=== PATIENT | female | born 1950 | race Caucasian/White ===

== ENCOUNTER 2018-02-02 07:03 | Inpatient (IN) | payer MEDICARE, BC ==
[~2018-02-02] VITALS: Ht 167.6 cm; Wt 93.0 kg
[2018-02-02] VITALS (13 sets, daily range): BP systolic 122–144; BP diastolic 68–80
[2018-02-02 07:34] LABS: BASOPHILS % (AUTO) 0 % (0-1); EOSINOPHILS # (AUTO) 0.2 X10'3 (0-0.9); EOSINOPHILS % (AUTO) 3.6 % (0-6); HEMATOCRIT 42.6 % (35.0-45.0); HEMOGLOBIN 14.3 g/dl (12.0-16.0); LYMPHOCYTES # (AUTO) 0.4 X10'3 (1.1-4.8); LYMPHOCYTES % (AUTO) 6.9 % (21-51); MEAN CORPUSCULAR HEMOGLOBIN 29.3 PG (27.0-31.0); MEAN CORPUSCULAR HGB CONC 33.5 % (33.0-36.5); MEAN CORPUSCULAR VOLUME 87.3 FL (78-98); MEAN PLATELET VOLUME 7.7 FL (7.4-10.4); MONOCYTES # (AUTO) 0.3 X10'3 (0-0.9); MONOCYTES % (AUTO) 5.8 % (2-12); NEUTROPHILS # (AUTO) 4.4 X10'3 (1.8-7.7); NEUTROPHILS % (AUTO) 83.7 % (42-75); PLATELET COUNT 176 X10'3 (140-440); RED BLOOD COUNT 4.88 X10'6 (4.20-5.60); RED CELL DISTRIBUTION WIDTH 15.1 % (11.5-14.5); WHITE BLOOD COUNT 5.3 X10'3 (4.5-11.0)
[2018-02-02 07:37] LABS: CLARITY,URINE SLIGHTLY CLOUDY (Clear); COLOR,URINE YELLOW (Yellow); GLUCOSE, URINE NEGATIVE (Neg); KETONES,URINE TRACE mg/dl (Neg); LEUKOCYTE ESTERASE ,URINE SMALL (Neg); NITRITES, URINE POSITIVE (Neg); OCCULT BLOOD,URINE NEGATIVE (Neg); PROTEIN,URINE TRACE mg/dl (Neg)
[2018-02-02] MEDS ORDERED: normal saline 1000ML IV soln IVB ONE ×2 (07:40)
[2018-02-02 07:44] LABS: PARTIAL THROMBOPLASTIN TIME 26 SECONDS (22-32); PROTHROMBIN TIME 9.9 SECONDS (9.0-12.0)
[2018-02-02] MEDS ORDERED: acetaminophen 325mg tablet PO ONE (07:45)
[2018-02-02 07:51] LABS: UA COLLECTION TYPE CLN CATCH MIDSTREAM
[2018-02-02 07:58] LABS: BACTERIA,URINE 4+ /HPF (Neg); SQUAMOUS EPITHELIAL CELL,UR MODERATE /LPF (FEW); WBC,URINE 30-50 /HPF (0-4)
[2018-02-02 07:59] LABS: RBC,URINE 0-2 /HPF (0-2)
[2018-02-02 08:03] LABS: ALANINE AMINOTRANSFERASE 20 U/L (12-78); ALBUMIN 3.8 G/DL (3.4-5.0); ALKALINE PHOSPHATASE 62 IU/L (46-116); ANION GAP 10 (8-16); ASPARTATE AMINO TRANSFERASE 17 U/L (10-37); BILIRUBIN,TOTAL 0.7 MG/DL (0.1-1.0); BLOOD UREA NITROGEN 19 MG/DL (7-18); BUN/CREATININE RATIO 18.1 (6.6-38.0); CALCIUM 8.9 MG/DL (8.5-10.1); CHLORIDE 104 MMOL/L (99-107); CREATININE 1.05 MG/DL (0.40-0.90); GLUCOSE 117 MG/DL (70-104); POTASSIUM 4.2 MMOL/L (3.5-5.1); SODIUM 139 MMOL/L (135-145); TOTAL CARBON DIOXIDE 24.7 MMOL/L (24-32); TOTAL PROTEIN 7.5 G/DL (6.4-8.2); eGFR 52 ML/MIN
[2018-02-02] MEDS ORDERED: CefTRIAXone 2gm/D5W 50ml 50 ML IV ONE (08:10)
[2018-02-02] MEDS ORDERED: diphenhydrAMINE 50 mg/ml inj IV ONE (08:55)
[2018-02-02] MEDS ORDERED: magnesium Cl slow-release 64mg tablet PO PRN (09:10)
[2018-02-02] MEDS ORDERED: potassium Cl 40MEQ/NS 500ml 500 ML IV PRN ×2 (09:10)
[2018-02-02] MEDS ORDERED: potassium Cl 20 mEq SR tablet PO PRN ×2 (09:10)
[2018-02-02] MEDS ORDERED: mag hydrox/Alum hydrox/simeth 30ml oral suspension PO PRN (09:10)
[2018-02-02] MEDS ORDERED: magnesium hydroxide 30ml (MOM) UD suspension PO PRN (09:10)
[2018-02-02] MEDS ORDERED: ondansetron/PF 4mg/2ml inj IV PRN (09:10)
[2018-02-02] MEDS ORDERED: magnesium 1gm/100ml D5W IVPB 100 ML IV PRN (09:10)
[2018-02-02] MEDS ORDERED: acetaminophen 325mg tablet PO PRN (09:10)
[2018-02-02] MEDS ORDERED: magnesium 4gm in 100ml NS 100 ML IV PRN (09:10)
[2018-02-02] MEDS: aspirin 81mg tab.chew PO SCH (09:15)
[2018-02-02] MEDS ORDERED: CefTRIAXone/D5W-Rocephin 1gm 50 ML IV SCH (09:15)
[2018-02-02] MEDS ORDERED: ERGO500014 PO (09:43)
[2018-02-02] MEDS ORDERED: SIMV20TA5 PO (09:45)
[2018-02-02] MEDS ORDERED: LUTE1CAP5 (09:48)
[2018-02-02] MEDS ORDERED: ASPI-611 PO (09:49)
[2018-02-02] MEDS ORDERED: [UNRECOGNIZED DRUG - CODE] (09:50)
[2018-02-02] MEDS ORDERED: ACET-2319 PO (09:53)
[2018-02-02] MEDS ORDERED: CALC-627 (09:54)
[2018-02-02] MEDS ORDERED: metoprolol tartrate 1mg/ml inj IV PRN (10:00)
[2018-02-02] MEDS ORDERED: CAFFEINE CITRATE 60 MG/3 ML injection vial IV PRN (10:00)
[2018-02-02] MEDS ORDERED: regadenoson 0.4mg/5ml syringe IV ONE ×2 (10:00→13:29)
[2018-02-02] MEDS ORDERED: nitroGLYCERIN 0.4mg SUBLingual tab SL PRN (10:00)
[2018-02-02] MEDS ORDERED: DIPH25CA83 PO (10:03)
[2018-02-02] MEDS ORDERED: LEVO25TA2 PO (10:05)
[2018-02-02] MEDS: normal saline 1000ml 1,000 ML IV SCH (11:00)
[2018-02-02] MEDS ORDERED: CAFFEINE CITRATE 60 MG/3 ML injection vial IV ONE (13:29)
[2018-02-02] MEDS: metoprolol tartrate 12.5mg (1/2 tablet) PO SCH (19:45)
[2018-02-02] MEDS: heparin, porcine 5000 units/ml vial SQ SCH (19:46)
[2018-02-02] MEDS ORDERED: lactobacillus rhamnosus 10,000 MMU CELLS/CAPSULE PO SCH (20:00)
[2018-02-02] MEDS ORDERED: temazepam 15mg capsule PO PRN (20:00)
[2018-02-02] MEDS: levoFLOXACIN-Levaquin 500mg/D5 100 ML IV SCH (21:08)
[2018-02-03] MEDS: normal saline 1000ml 1,000 ML IV SCH (00:28)
[2018-02-03 03:00] VITALS: BP 109/66
[2018-02-03 04:52] LABS: BASOPHILS % (AUTO) 0.3 % (0-1); EOSINOPHILS # (AUTO) 0.1 X10'3 (0-0.9); EOSINOPHILS % (AUTO) 3.1 % (0-6); HEMOGLOBIN 11.8 g/dl (12.0-16.0); LYMPHOCYTES # (AUTO) 0.9 X10'3 (1.1-4.8); LYMPHOCYTES % (AUTO) 22.5 % (21-51); MEAN CORPUSCULAR HEMOGLOBIN 29.4 PG (27.0-31.0); MEAN CORPUSCULAR HGB CONC 33.6 % (33.0-36.5); MEAN CORPUSCULAR VOLUME 87.5 FL (78-98); MEAN PLATELET VOLUME 7.7 FL (7.4-10.4); MONOCYTES # (AUTO) 0.5 X10'3 (0-0.9); MONOCYTES % (AUTO) 11.3 % (2-12); NEUTROPHILS # (AUTO) 2.6 X10'3 (1.8-7.7); NEUTROPHILS % (AUTO) 62.8 % (42-75); PLATELET COUNT 145 X10'3 (140-440); RED CELL DISTRIBUTION WIDTH 15.2 % (11.5-14.5); WHITE BLOOD COUNT 4.1 X10'3 (4.5-11.0)
[2018-02-03 05:09] LABS: ALANINE AMINOTRANSFERASE 16 U/L (12-78); ALBUMIN 2.7 G/DL (3.4-5.0); ALBUMIN/GLOBULIN RATIO 0.9 (1.1-1.5); ALKALINE PHOSPHATASE 45 IU/L (46-116); ANION GAP 8 (8-16); ASPARTATE AMINO TRANSFERASE 13 U/L (10-37); BILIRUBIN,TOTAL 0.4 MG/DL (0.1-1.0); BLOOD UREA NITROGEN 14 MG/DL (7-18); BUN/CREATININE RATIO 16.1 (6.6-38.0); CALCIUM 7.9 MG/DL (8.5-10.1); CHLORIDE 108 MMOL/L (99-107); CHOL/HDL RATIO 3.3 (0.00-4.99); CHOLESTEROL 140 MG/DL (0-200); CREATININE 0.87 MG/DL (0.40-0.90); GLUCOSE 104 MG/DL (70-104); HDL CHOLESTEROL 43 MG/DL (35-60); LDL CHOLESTEROL 78 MG/DL (50-100); MAGNESIUM 1.6 MG/DL (1.5-2.4); POTASSIUM 3.7 MMOL/L (3.5-5.1); SODIUM 140 MMOL/L (135-145); TOTAL CARBON DIOXIDE 24.1 MMOL/L (24-32); TOTAL PROTEIN 5.8 G/DL (6.4-8.2); TRIGLYCERIDES 130 MG/DL (20-135); eGFR 65 ML/MIN
[2018-02-03 06:00] VITALS: BP 99/60
[2018-02-03] MEDS ORDERED: K and/or MAG REPLACEMENT MC SCH (08:00)
[2018-02-03 09:19] VITALS: BP 110/68
[2018-02-03] MEDS: metoprolol tartrate 12.5mg (1/2 tablet) PO SCH (09:20)
[2018-02-03] MEDS: aspirin 81mg tab.chew PO SCH (09:21)
[2018-02-03] MEDS: heparin, porcine 5000 units/ml vial SQ SCH (09:22)
[2018-02-03] MEDS: levoFLOXACIN-Levaquin 500mg/D5 100 ML IV SCH (09:22)
[2018-02-03 11:00] VITALS: BP 105/65
[2018-02-03] MEDS ORDERED: LEVO500T2 PO (12:52)
[2018-02-04] MEDS ORDERED: levoFLOXACIN 500mg tablet PO SCH (11:00)
== END 2018-02-03 14:25 | disposition home or self-care (01) | DRG 872 ==
LOC: ER 07:03 → ED HOLD 09:09 → PCU 3S 10:40
PROVIDERS: ADMIT Internal Medicine; ATTEND Internal Medicine
PROC: 4A02XM4 Measurement of Cardiac Total Activity, External Approach (ICD-10-PCS; principal; 2018-02-02)
PROC: 3E033HZ Introduction of Radioactive Substance into Peripheral Vein, Percutaneous Approach (ICD-10-PCS; 2018-02-02)
DX: A41.9 Sepsis, unspecified organism (principal); N39.0 Urinary tract infection, site not specified; E03.9 Hypothyroidism, unspecified; E78.00 Pure hypercholesterolemia, unspecified; R00.0 Tachycardia, unspecified; I08.1 Rheumatic disorders of both mitral and tricuspid valves; R07.9 Chest pain, unspecified; F41.9 Anxiety disorder, unspecified; I10 Essential (primary) hypertension; Z88.1 Allergy status to other antibiotic agents; Z88.6 Allergy status to analgesic agent; Z79.82 Long term (current) use of aspirin; Z79.890 Hormone replacement therapy; Z79.899 Other long term (current) drug therapy; Z82.49 Family history of ischemic heart disease and other diseases of the circulatory system
CPT/HCPCS: 36415; 71045; 78452; 80053; 80061; 81001; 83605; 83735; 84484; 85025; 85610; 85730; 87040; 87070; 87077; 87088; 87186; 93005; 93017; 93306; 96365; 96375; 99285; A9500; J0696; J1200; J1644; J1956; J2405; J7030

== ENCOUNTER 2019-04-10 05:26 | Inpatient (IN) | payer MEDICARE, BC ==
[2019-03-29 12:05] LABS: BASOPHILS % (AUTO) 0.4 % (0-1); EOSINOPHILS # (AUTO) 0.3 X10'3 (0-0.9); EOSINOPHILS % (AUTO) 3.4 % (0-6); LYMPHOCYTES # (AUTO) 1.1 X10'3 (1.1-4.8); LYMPHOCYTES % (AUTO) 14.9 % (21-51); MEAN CORPUSCULAR HEMOGLOBIN 29.8 PG (27.0-31.0); MEAN CORPUSCULAR HGB CONC 33.5 g/dL (33.0-36.5); MEAN PLATELET VOLUME 7.3 FL (7.4-10.4); MONOCYTES # (AUTO) 0.8 X10'3 (0-0.9); MONOCYTES % (AUTO) 10.2 % (2-12); NEUTROPHILS # (AUTO) 5.4 X10'3 (1.8-7.7); NEUTROPHILS % (AUTO) 71.1 % (42-75); PRE OP HEMATOCRIT 41.2 % (35.0-45.0); PRE OP HEMOGLOBIN 13.8 g/dL (12.0-16.0); PRE OP PLATELET COUNT 219 X10'3 (140-440); RED BLOOD COUNT 4.63 X10'6 (4.20-5.60); RED CELL DISTRIBUTION WIDTH 14.8 % (11.5-14.5)
[2019-03-29 12:10] LABS: PRE OP INR 0.9 INR
[2019-03-29 12:12] LABS: ALBUMIN 3.8 G/DL (3.4-5.0); ALKALINE PHOSPHATASE 64 IU/L (46-116); BLOOD UREA NITROGEN 22 MG/DL (7-18); BUN/CREATININE RATIO 28.2 (6.6-38.0); CALCIUM 8.9 MG/DL (8.5-10.1); CHLORIDE 108 MMOL/L (99-107); CREATININE 0.78 MG/DL (0.40-0.90); PRE OP ALT 23 U/L (30-65); PRE OP ANION GAP 6 (8-16); PRE OP AST 14 U/L (10-37); PRE OP BILIRUB, TOTAL 0.7 MG/DL (0.0-1.0); PRE OP GLUCOSE 96 MG/DL (70-104); PRE OP POTASSIUM 4.2 MMOL/L (3.4-5.1); PRE OP SODIUM 142 MMOL/L (135-145); TOTAL CARBON DIOXIDE 27.7 MMOL/L (24-32); TOTAL PROTEIN 7.5 G/DL (6.4-8.2); eGFR 73 ML/MIN
[2019-04-10] VITALS (16 sets, daily range): BP systolic 93–167; BP diastolic 35–94
[~2019-04-10] VITALS: Ht 167.6 cm; Wt 98.9 kg
[~2019-04-10 05:26] MED LIST: ACET-2119 PO; ACET-2319 PO; ASPI-611 PO; BETA1TAB18 PO; BIOT300T7 PO; CALC-627 PO; CRANBERRY PO; DIPH25TA45 PO; ERGO500014 PO; IBPROFEN PO; IRBE150T27 PO; JOINT JUICE PO; LEG CRAMP PM; LEVO25TA2 PO; MELA3TAB64 PO; SIMV-42 PO; THERAWORX TOP; [UNRECOGNIZED DRUG - CODE] PO; [UNRECOGNIZED DRUG - OTHER] PO; ringers solution, lacted 1,000 ML IV SCH
[2019-04-10] MEDS ORDERED: tranexamic acid inj. 1,000 MG in normal saline 100 ML IV ONE (05:30)
[2019-04-10] MEDS ORDERED: clindamycin-Cleocin 900mg/D5W 50 ML IV ONE (05:30)
[2019-04-10] MEDS ORDERED: vancomycin inj 1,500 MG in normal saline 300ml IV soln IV ONE (05:30)
[2019-04-10] MEDS ORDERED: famotidine 20mg tablet PO ONE (05:30)
[2019-04-10] MEDS ORDERED: LIDOcaine 1% (10mg/ml) 2ml vial ONE (06:09)
[2019-04-10] MEDS ORDERED: ceFAZolin 1000mg inj ONE (06:38)
[2019-04-10] MEDS ORDERED: fentaNYL/PF 50MCG/1 ML 2ML syringe ONE (07:23)
[2019-04-10] MEDS ORDERED: MIDAZolam 1mg/ml 10ml vial ONE (07:23)
[2019-04-10] MEDS ORDERED: ringers solution, lacted 1,000 ML IV SCH (08:32)
[2019-04-10] MEDS ORDERED: meperidine/PF 25mg/ml syringe IV PRN ×3 (08:35)
[2019-04-10] MEDS ORDERED: ondansetron/PF 4mg/2ml inj IV PRN ×2 (08:35→09:55)
[2019-04-10] MEDS ORDERED: morphine 4 MG/ML inj SYRINge IV PRN ×2 (08:35)
[2019-04-10] MEDS ORDERED: proCHLORperazine 10 MG/2 ml inj IV PRN (08:35)
[2019-04-10] MEDS: potassium Cl 20mEq in NS 1,000 ML IV SCH ×2 (09:52→23:12)
[2019-04-10] MEDS ORDERED: bisacodyl 10mg suppository rectal RC PRN (09:55)
[2019-04-10] MEDS ORDERED: diphenhydrAMINE 25mg capsule PO PRN ×2 (09:55)
[2019-04-10] MEDS ORDERED: acetaminophen 325mg tablet PO PRN (09:55)
[2019-04-10] MEDS ORDERED: HYDROmorphone inj. 0.5 MG/0.5 ML DISP.SYRIN IV PRN (09:55)
[2019-04-10] MEDS ORDERED: magnesium hydroxide 30ml (MOM) UD suspension PO PRN (09:55)
[2019-04-10] MEDS ORDERED: dexamethasone sod phosphate 4mg/ml inj. ONE (10:00)
[2019-04-10] MEDS ORDERED: ROPIVAcaine 0.5% (5mg/ml) 30ml vial ONE (10:00)
--- NOTE | 2019-04-10 10:05 | NUR ---
Received from OR via , accompanied by Anesthesiologist TRIP and report given by Anesthesiolgist. AWAKE IN NO RESP DISTRESS SKIN WARM AND DRY HOB ELEVATED, RLE ELEVATED WITH PILLOW, HEEL NOT ON BED. FEET WARM GOOD CAP REFILL AND PEDAL PULSES. NO CO PAIN, BOBBY, SENSATION L1. [place] SECURED, WITH CLEAR YELLOW URINE. ICE TO RT KNEE. SCDS ON.
[2019-04-10] MEDS: ROPIVAcaine 0.2%/PF PAIN PUMP 550 ML IJ SCH (10:41)
--- NOTE | 2019-04-10 10:55 | NUR ---
Report called to receiving nurse. Transferred via BED Belongings . Special Issues communicated to receiving nurse.AWAKE NO CO PAIN, DSG DI, GELACIO DSG, PAIN PUMP CONNECTED, AT 4, ICE TO RT KNEE FEET WITH PEDAL PULSES. URINE QS CLEAER YELLOW, SCDS CONT. TO ROOM, FAMILY AT BS.
[2019-04-10] MEDS ORDERED: HYDROcodone/acetaminophen 5mg/325mg tablet PO PRN (12:05)
[2019-04-10] MEDS ORDERED: HYDROmorphone 1 mg/ml syringe ONE (12:20)
[2019-04-10] MEDS: clindamycin 600mg/D5W 50ml 50 ML IV SCH ×2 (13:58→19:35)
[2019-04-10] MEDS: HYDROcodone/acetaminophen 10/325mg tab PO PRN ×3 (13:59→22:35)
[2019-04-10] MEDS: ketorolac tromethamine 15mg/ml inj. IV SCH ×2 (13:59→19:36)
[2019-04-10] MEDS ORDERED: vancomycin/NS 1 GM ADD-VANTAGE 250 ML IV SCH (20:00)
[2019-04-10] MEDS: sennosides 8.6mg tablet PO SCH (20:43)
[2019-04-11] MEDS: ketorolac tromethamine 15mg/ml inj. IV SCH ×2 (01:44→08:14)
[2019-04-11 02:00] VITALS: BP 109/69
[2019-04-11] MEDS: HYDROcodone/acetaminophen 10/325mg tab PO PRN ×3 (05:23→19:55)
[2019-04-11 05:34] LABS: BASOPHILS % (AUTO) 0.2 % (0-1); EOSINOPHILS % (AUTO) 0.1 % (0-6); HEMATOCRIT 31.8 % (35.0-45.0); HEMOGLOBIN 10.8 g/dl (12.0-16.0); LYMPHOCYTES # (AUTO) 0.7 X10'3 (1.1-4.8); LYMPHOCYTES % (AUTO) 8.9 % (21-51); MEAN CORPUSCULAR HEMOGLOBIN 30.7 PG (27.0-31.0); MEAN CORPUSCULAR VOLUME 90.3 FL (78-98); MEAN PLATELET VOLUME 7.6 FL (7.4-10.4); MONOCYTES # (AUTO) 0.9 X10'3 (0-0.9); MONOCYTES % (AUTO) 10.4 % (2-12); NEUTROPHILS # (AUTO) 6.6 X10'3 (1.8-7.7); NEUTROPHILS % (AUTO) 80.4 % (42-75); PLATELET COUNT 170 X10'3 (140-440); RED BLOOD COUNT 3.52 X10'6 (4.20-5.60); RED CELL DISTRIBUTION WIDTH 14.3 % (11.5-14.5); WHITE BLOOD COUNT 8.3 X10'3 (4.5-11.0)
--- NOTE | 2019-04-11 06:25 | NUR ---
Patient in room ORTHO 4023B. I have received report from Yahaira and had the opportunity to ask questions and assume patient care.
--- NOTE | 2019-04-11 06:35 | NUR ---
Received report from Anne-Marie RN
[2019-04-11 06:39] LABS: ALANINE AMINOTRANSFERASE 15 U/L (12-78); ALBUMIN 2.8 G/DL (3.4-5.0); ALBUMIN/GLOBULIN RATIO 0.8 (1.1-1.5); ALKALINE PHOSPHATASE 48 IU/L (46-116); ANION GAP 6 (8-16); ASPARTATE AMINO TRANSFERASE 12 U/L (10-37); BILIRUBIN,TOTAL 0.6 MG/DL (0.1-1.0); BLOOD UREA NITROGEN 14 MG/DL (7-18); BUN/CREATININE RATIO 14.9 (6.6-38.0); CALCIUM 8.5 MG/DL (8.5-10.1); CHLORIDE 110 MMOL/L (99-107); CREATININE 0.94 MG/DL (0.40-0.90); GLUCOSE 119 MG/DL (70-104); POTASSIUM 5.4 MMOL/L (3.5-5.1); SODIUM 144 MMOL/L (135-145); TOTAL CARBON DIOXIDE 27.8 MMOL/L (24-32); TOTAL PROTEIN 6.1 G/DL (6.4-8.2); eGFR 59 ML/MIN
[2019-04-11 06:53] VITALS: BP 118/77
[2019-04-11] MEDS: levoTHYROXINE 25mcg tablet PO SCH (07:46)
[2019-04-11] MEDS: losartan 50mg tablet PO SCH (07:49)
--- NOTE | 2019-04-11 11:44 | NUR ---
Joint replacement consult: Pt s/p R TKA PO 75-100% first meal post-op meeting healing needs thus far. LBM 04/10 receiving routine senna. K 5.4 receiving KCl/NS. Will monitor for additional protein needs; no current nutrition concerns at this time. Addendum: 04/11/19 at [address] Amended: Links added.
--- NOTE | 2019-04-11 11:48 | NUR ---
Student Medication Administration:For this medication-pass time frame 9060-6972, all medications were reviewed,administered and documented per hospital policy by Lorne Salinas. Student documentation:I have reviewed and agree with all interventions, assessments performed and documented by Lorne Salinas.
--- NOTE | 2019-04-11 12:08 | NUR ---
Problems reprioritized. Patient report given, questions answered & plan of care reviewed with Yahaira.
[2019-04-11] MEDS: potassium Cl 20mEq in NS 1,000 ML IV SCH (12:32)
[2019-04-11 18:00] VITALS: BP 108/64
--- NOTE | 2019-04-11 18:19 | NUR ---
Patient in room ORTHO 4023. I have received report from SADIE OCHOA and had the opportunity to ask questions and assume patient care.
[2019-04-11] MEDS: sennosides 8.6mg tablet PO SCH (19:56)
[2019-04-11 22:00] VITALS: BP 154/77
[2019-04-12] MEDS: potassium Cl 20mEq in NS 1,000 ML IV SCH (01:52)
[2019-04-12] MEDS: HYDROcodone/acetaminophen 10/325mg tab PO PRN ×4 (05:19→20:42)
[2019-04-12 06:00] VITALS: BP 144/71
[2019-04-12 06:38] LABS: BASOPHILS # (AUTO) 0.1 X10'3 (0-0.2); BASOPHILS % (AUTO) 0.6 % (0-1); EOSINOPHILS # (AUTO) 0.3 X10'3 (0-0.9); EOSINOPHILS % (AUTO) 3.3 % (0-6); HEMATOCRIT 31.5 % (35.0-45.0); HEMOGLOBIN 10.7 g/dl (12.0-16.0); LYMPHOCYTES # (AUTO) 1.5 X10'3 (1.1-4.8); LYMPHOCYTES % (AUTO) 17.7 % (21-51); MEAN CORPUSCULAR HEMOGLOBIN 30.6 PG (27.0-31.0); MEAN CORPUSCULAR VOLUME 89.9 FL (78-98); MEAN PLATELET VOLUME 7.5 FL (7.4-10.4); NEUTROPHILS # (AUTO) 5.5 X10'3 (1.8-7.7); NEUTROPHILS % (AUTO) 66.4 % (42-75); PLATELET COUNT 165 X10'3 (140-440); RED CELL DISTRIBUTION WIDTH 14.4 % (11.5-14.5); WHITE BLOOD COUNT 8.2 X10'3 (4.5-11.0)
[2019-04-12 06:55] LABS: ALANINE AMINOTRANSFERASE 17 U/L (12-78); ALBUMIN 2.9 G/DL (3.4-5.0); ALBUMIN/GLOBULIN RATIO 0.8 (1.1-1.5); ALKALINE PHOSPHATASE 52 IU/L (46-116); ANION GAP 8 (8-16); ASPARTATE AMINO TRANSFERASE 14 U/L (10-37); BILIRUBIN,TOTAL 0.6 MG/DL (0.1-1.0); BLOOD UREA NITROGEN 16 MG/DL (7-18); BUN/CREATININE RATIO 20.5 (6.6-38.0); CALCIUM 8.7 MG/DL (8.5-10.1); CHLORIDE 106 MMOL/L (99-107); CREATININE 0.78 MG/DL (0.40-0.90); GLUCOSE 94 MG/DL (70-104); POTASSIUM 4.2 MMOL/L (3.5-5.1); SODIUM 141 MMOL/L (135-145); TOTAL CARBON DIOXIDE 27.1 MMOL/L (24-32); TOTAL PROTEIN 6.6 G/DL (6.4-8.2); eGFR 73 ML/MIN
--- NOTE | 2019-04-12 06:58 | NUR ---
Problems reprioritized. Patient report given, questions answered & plan of care reviewed with SADIE DELGADO.
[2019-04-12 07:00] VITALS: BP 104/69
[2019-04-12] MEDS ORDERED: MIDAZolam 5mg/5ml vial ONE (07:48)
[2019-04-12] MEDS: levoTHYROXINE 25mcg tablet PO SCH (07:57)
[2019-04-12] MEDS: losartan 50mg tablet PO SCH (08:00)
[2019-04-12] MEDS ORDERED: ASPI-1071 PO (09:12)
[2019-04-12] MEDS ORDERED: HYDR-4353 PO (09:12)
[2019-04-12] MEDS: ROPIVAcaine 0.2%/PF PAIN PUMP 550 ML IJ SCH (09:30)
[2019-04-12 10:00] VITALS: BP 131/64
--- NOTE | 2019-04-12 11:21 | NUR ---
Student documentation: I have reviewed all interventions, assessments performed and [facility] Student Medication Administration: For this medication-pass time frame, all medication were reviewed, dispensed, administered and documented per hospital policy [facility].
[2019-04-12] MEDS ORDERED: aspirin 81mg tablet.DR PO ONE (11:25)
[2019-04-12] MEDS ORDERED: ROPIVAcaine 0.2%/PF PAIN PUMP 550 ML ADDCANAL SCH (15:08)
[2019-04-12] MEDS: aspirin 81mg tablet.DR PO SCH (17:34)
--- NOTE | 2019-04-12 18:00 | NUR ---
Received report from Lisandra NOEL.
[2019-04-12 18:30] VITALS: BP 131/79
[2019-04-12] MEDS: sennosides 8.6mg tablet PO SCH (20:31)
[2019-04-12 22:00] VITALS: BP 123/64
[2019-04-13] MEDS: HYDROcodone/acetaminophen 10/325mg tab PO PRN ×4 (05:35→17:51)
[2019-04-13 06:00] VITALS: BP 139/76
--- NOTE | 2019-04-13 06:29 | NUR ---
Problems reprioritized. Patient report given, questions answered & plan of care reviewed with Lisandra Esquivel RN.
[2019-04-13 07:19] LABS: BASOPHILS # (AUTO) 0.1 X10'3 (0-0.2); BASOPHILS % (AUTO) 0.7 % (0-1); EOSINOPHILS # (AUTO) 0.4 X10'3 (0-0.9); EOSINOPHILS % (AUTO) 5.3 % (0-6); HEMOGLOBIN 10.6 g/dl (12.0-16.0); LYMPHOCYTES # (AUTO) 1.2 X10'3 (1.1-4.8); LYMPHOCYTES % (AUTO) 15.6 % (21-51); MEAN CORPUSCULAR HEMOGLOBIN 30.6 PG (27.0-31.0); MEAN CORPUSCULAR HGB CONC 34.3 g/dL (33.0-36.5); MEAN CORPUSCULAR VOLUME 89.1 FL (78-98); MEAN PLATELET VOLUME 7.5 FL (7.4-10.4); MONOCYTES # (AUTO) 0.9 X10'3 (0-0.9); MONOCYTES % (AUTO) 10.9 % (2-12); NEUTROPHILS # (AUTO) 5.4 X10'3 (1.8-7.7); NEUTROPHILS % (AUTO) 67.5 % (42-75); PLATELET COUNT 186 X10'3 (140-440); RED BLOOD COUNT 3.48 X10'6 (4.20-5.60); RED CELL DISTRIBUTION WIDTH 14.7 % (11.5-14.5); WHITE BLOOD COUNT 7.9 X10'3 (4.5-11.0)
[2019-04-13 07:40] LABS: ALANINE AMINOTRANSFERASE 16 U/L (12-78); ALBUMIN 2.9 G/DL (3.4-5.0); ALBUMIN/GLOBULIN RATIO 0.7 (1.1-1.5); ALKALINE PHOSPHATASE 60 IU/L (46-116); ANION GAP 7 (8-16); ASPARTATE AMINO TRANSFERASE 14 U/L (10-37); BILIRUBIN,TOTAL 0.8 MG/DL (0.1-1.0); BLOOD UREA NITROGEN 13 MG/DL (7-18); BUN/CREATININE RATIO 15.5 (6.6-38.0); CALCIUM 8.8 MG/DL (8.5-10.1); CHLORIDE 104 MMOL/L (99-107); CREATININE 0.84 MG/DL (0.40-0.90); GLUCOSE 108 MG/DL (70-104); SODIUM 139 MMOL/L (135-145); TOTAL CARBON DIOXIDE 28.1 MMOL/L (24-32); TOTAL PROTEIN 6.9 G/DL (6.4-8.2); eGFR 67 ML/MIN
[2019-04-13] MEDS: losartan 50mg tablet PO SCH (08:00)
[2019-04-13] MEDS: aspirin 81mg tablet.DR PO SCH ×2 (08:20→17:50)
[2019-04-13] MEDS: levoTHYROXINE 25mcg tablet PO SCH (08:20)
[2019-04-13 10:04] VITALS: BP 151/78
--- NOTE | 2019-04-13 16:29 | NUR ---
Pt PO 50-75% avg meals so far this admit. Pt/SO seen by RD for written/verbal high protein ed w/ RD contact information provided. Pt in process of d/c during RD visit. Encouraged pt to contact RD if further nutrition questions/concerns. Addendum: 04/13/19 at [address] Amended: Links added.
== END 2019-04-13 18:30 | disposition home or self-care (01) | DRG 470 ==
LOC: PAS IN 05:26 → EDSTATUS 07:30 → ORTHO 4S 10:55
PROVIDERS: ADMIT Orthopaedic Surgery; ATTEND Orthopaedic Surgery
PROC: 3E0T3BZ Introduction of Anesthetic Agent into Peripheral Nerves and Plexi, Percutaneous Approach (ICD-10-PCS; 2019-04-10)
PROC: 0SRC069 Replacement of Right Knee Joint with Oxidized Zirconium on Polyethylene Synthetic Substitute, Cemented, Open Approach (ICD-10-PCS; principal; 2019-04-10 07:17)
DX: M17.11 Unilateral primary osteoarthritis, right knee (principal); D62 Acute posthemorrhagic anemia; I10 Essential (primary) hypertension; E66.9 Obesity, unspecified; E03.9 Hypothyroidism, unspecified; Z88.5 Allergy status to narcotic agent; Z91.013 Allergy to seafood; Z68.35 Body mass index [BMI] 35.0-35.9, adult
CPT/HCPCS: 36415; 80053; 82948; 84443; 85025; 85610; 85730; 86885; 86900; 86901; 86920; 87081; 97110; 97116; 97161; 97530; A4215; A4615; A6455; A7000; C1713; C1758; C1776; G0378; J0690; J1100; J1170; J1885; J2001; J2250; J2795; J3010; J3370; J3480; J3490; J7120; Q0163

== ENCOUNTER 2023-03-08 17:26 | Emergency (ER) | payer MEDICARE ==
[~2023-03-08] VITALS: Ht 165.1 cm; Wt 95.2 kg
[~2023-03-08 17:26] MED LIST changes: -ACET-2119 PO; -ACET-2319 PO; +ASPI-1071 PO; -ASPI-611 PO; -BETA1TAB18 PO; -BIOT300T7 PO; -CALC-627 PO; -CRANBERRY PO; -DIPH25TA45 PO; -ERGO500014 PO; +HYDR-4353 PO; -IBPROFEN PO; +IRBE150T24 PO; -IRBE150T27 PO; -JOINT JUICE PO; -LEG CRAMP PM; -MELA3TAB64 PO; -SIMV-42 PO; -THERAWORX TOP; -[UNRECOGNIZED DRUG - CODE] PO; -[UNRECOGNIZED DRUG - OTHER] PO; -ringers solution, lacted 1,000 ML IV SCH
[2023-03-08 17:32] VITALS: TEMP 99.3
[2023-03-08 18:14] LABS: BILIRUBIN,URINE NEGATIVE (Neg); CLARITY,URINE SLIGHTLY CLOUDY (Clear); COLOR,URINE YELLOW (Yellow); GLUCOSE, URINE NEGATIVE (Neg); KETONES,URINE NEGATIVE (Neg); LEUKOCYTE ESTERASE ,URINE SMALL (Neg); NITRITES, URINE NEGATIVE (Neg); OCCULT BLOOD,URINE TRACE-INTACT (Neg); PROTEIN,URINE NEGATIVE (Neg); UROBILINOGEN,URINE 0.2 E.U/dL (0.2-1.0)
[2023-03-08 18:17] LABS: HEMOGLOBIN 14.3 g/dl (12.0-16.0); MONOCYTES # (AUTO) 0.8 X10'3 (0-0.9)
[2023-03-08 18:19] LABS: BASOPHILS # (AUTO) 0.1 X10'3 (0-0.2); BASOPHILS % (AUTO) 0.7 % (0-1); EOSINOPHILS # (AUTO) 0.2 X10'3 (0-0.9); EOSINOPHILS % (AUTO) 1.9 % (0-6); HEMATOCRIT 42.8 % (35.0-45.0); LYMPHOCYTES # (AUTO) 1.4 X10'3 (1.1-4.8); LYMPHOCYTES % (AUTO) 16.3 % (21-51); MEAN CORPUSCULAR HEMOGLOBIN 29.9 PG (27.0-31.0); MEAN CORPUSCULAR HGB CONC 33.4 g/dL (33.0-36.5); MEAN CORPUSCULAR VOLUME 89.7 FL (78-98); MEAN PLATELET VOLUME 7.2 FL (7.4-10.4); NEUTROPHILS # (AUTO) 6.2 X10'3 (1.8-7.7); NEUTROPHILS % (AUTO) 72.1 % (42-75); PLATELET COUNT 228 X10'3 (140-440); RED BLOOD COUNT 4.77 X10'6 (4.20-5.60); RED CELL DISTRIBUTION WIDTH 15.1 % (11.5-14.5); WHITE BLOOD COUNT 8.6 X10'3 (4.5-11.0)
[2023-03-08 18:23] LABS: UA COLLECTION TYPE CLN CATCH MIDSTREAM
[2023-03-08 18:30] LABS: BACTERIA,URINE 2+ /HPF (Neg); MUCUS STRANDS NONE SEEN /LPF (Neg); SQUAMOUS EPITHELIAL CELL,UR FEW /LPF (FEW); TRANSITIONAL EPI CELLS,URINE FEW /HPF; WBC CLUMPS,URINE FEW /HPF (NEGATIVE)
[2023-03-08 18:34] LABS: ALANINE AMINOTRANSFERASE 18 U/L (12-78); ALBUMIN 3.9 G/DL (3.4-5.0); ALKALINE PHOSPHATASE 69 IU/L (46-116); ANION GAP 11 (8-16); ASPARTATE AMINO TRANSFERASE 18 U/L (10-37); BILIRUBIN,TOTAL 0.7 MG/DL (0.1-1.0); BLOOD UREA NITROGEN 18 MG/DL (7-18); BUN/CREATININE RATIO 19.6 (10.0-20.0); CALCIUM 9.3 MG/DL (8.5-10.1); CHLORIDE 106 MMOL/L (99-107); CREATININE 0.92 MG/DL (0.40-0.90); GLUCOSE 121 MG/DL (70-104); POTASSIUM 4.2 MMOL/L (3.5-5.1); SODIUM 140 MMOL/L (135-145); TOTAL CARBON DIOXIDE 23.4 MMOL/L (24-32); TOTAL PROTEIN 7.7 G/DL (6.4-8.2); eCRCL 48 ML/MIN; eGFR 60 ML/MIN
[2023-03-08 18:42] LABS: PRO BRAIN NATRIURETIC PEPTIDE 197 PG/ML (0-125)
[2023-03-08 21:00] VITALS: BP 133/86; PULSE 96; RESP 18; O2SAT 96
[2023-03-08] MEDS ORDERED: ciprofloxacin 250mg tablet PO ONE (21:15)
[2023-03-08] MEDS ORDERED: CIPR-202 PO (21:16)
== END 2023-03-08 21:38 | disposition home or self-care (01) ==
LOC: ER 17:27
DX: N39.0 Urinary tract infection, site not specified (principal); E03.9 Hypothyroidism, unspecified; E07.9 Disorder of thyroid, unspecified; Z88.5 Allergy status to narcotic agent; Z88.8 Allergy status to other drugs, medicaments and biological substances; Z79.899 Other long term (current) drug therapy
CPT/HCPCS: 36415; 71045; 80053; 81001; 83880; 84484; 85025; 87077; 87088; 87186; 93005; 99285

== ENCOUNTER 2024-11-05 07:42 | Emergency (ER) | payer MEDICARE, OTHER ==
[~2024-11-05] VITALS: Ht 167.6 cm; Wt 96.8 kg
[~2024-11-05 07:42] MED LIST changes: -IRBE150T24 PO; +IRBE150T34 PO
[2024-11-05 07:52] VITALS: BP 188/98; PULSE 79; RESP 16; O2SAT 95
[2024-11-05 09:25] LABS: BILIRUBIN,URINE NEGATIVE (Neg); CLARITY,URINE CLEAR (Clear); COLOR,URINE STRAW (Yellow); GLUCOSE, URINE NEGATIVE (Neg); KETONES,URINE NEGATIVE (Neg); LEUKOCYTE ESTERASE ,URINE NEGATIVE (Neg); NITRITES, URINE NEGATIVE (Neg); OCCULT BLOOD,URINE NEGATIVE (Neg); PROTEIN,URINE NEGATIVE (Neg); UROBILINOGEN,URINE 0.2 E.U/dL (0.2-1.0)
[2024-11-05 09:26] LABS: UA COLLECTION TYPE CLN CATCH MIDSTREAM
--- NOTE | 2024-11-05 09:43 | Physician Documentation ---
History of Present Illness ~ Chief Complaint: Urinary Symptoms Stated Complaint: UTI Time Seen by MD: 09:38 Primary Medical Doctor: DR. SEGOVIA [facility] 74-year-old female presents to the ED with a complaint of urinary symptoms. He believes she has a urinary tract infection. Denies any fever reports urinary frequency Day of Onset: November 05, 2024 Medication Reconciliation Allergies: Coded Allergies: ceftriaxone (Verified Allergy, Mild, HIVES, 03/08/23) codeine (Verified Allergy, Unknown, 03/08/23) shellfish derived (Verified Allergy, Unknown, HIVES,SWELLING, 03/08/23) Scheduled Aspirin (Ecotrin*), 81 MG PO BIDBD Irbesartan (Irbesartan), 1 TAB PO DAILY, (Reported) levothyroxine sodium* (Synthroid*), 1 TAB PO DAILY, (Reported) Scheduled PRN Hydrocodone Bit/Acetaminophen ([place] 10-325 Tablet), 1-2 TAB PO Q4H PRN for moderate pain Past Medical History Past Medical History: High Cholesterol, Thyroid (unspecified) Past Surgical History: noncontributory Drug Use: none Lives In: Home Review of Systems All Other Systems at this time: Reviewed and Negative ROS As stated above in the HPI, otherwise all systems are reviewed and negative. Constitutional: Reports: no symptoms reported Physical Exam Vital Signs: Temperature: 98.4, Source: Oral, Heart Rate: 79, Respiratory Rate: 16, BP: 188/98, Pulse Oximetry: 95, Weight: 96.800 Oxygen Flow Rate: 0 Physical Exam General: Alert, no apparent distress. HEENT: PERRL, EOMI, no injection, moist mucous membranes. Gastrointestinal: Soft, nontender, nondistended. Bowels sounds present. Neurologic: Oriented x4. Psychiatric: Normal mood and affect. Skin: Normal color, warm and dry. No edema, no ecchymosis. Progress Results/Orders Results/Orders Vital Signs 11/05/24 11/05/24 07:52 09:46 Temp 98.4 98.4 Pulse 79 Resp 16 B/P (MAP) 188/98 Pulse Ox 95 O2 Flow Rate 0 Laboratory Tests Test 11/05/24 09:05 Urine Specimen Description Cln catch midstream Urine Color Straw Urine Clarity Clear Urine pH 6.0 Urine Specific [place] <=1.005 Urine Protein Negative Urine Glucose (UA) Negative Urine Ketones Negative Urine Occult Blood Negative Urine Nitrite Negative Urine Bilirubin Negative Urine Urobilinogen 0.2 Urine Leukocyte Esterase Negative Urine Culture Indicated Not ind Volume Urine Centrifuged 10 ml Urine Comment Medical Decision Making Findings Patient's urinary sample did not come back with any evidence of UTI or red blood cells indicating possible kidney stone. The patient to increase fluid intake follow up follow up with primary care or return to the ED for worsening symptoms Urinary Diff Dx:Considerations: Include: AAA, , Aortic dissection, Appendicitis, Bowel obstruction, Cholelithiasis, Choleangitis, DJD, Ectopic , Hepatitis, HNP, Impaction, Intrauterine , Musculoskeletal pain, Ovarian torsion, Pancreatitis, PID, Post-Op complication, Pyelonephritis, Renal failure, Strain, Urinary Obstruction, Urolithiasis, Urinary retention, UTI, Vaginitis, Other Departure Disposition: 01 HOME / SELF CARE / HOMELESS Impression: Primary Impression: Urinary tract pain Condition: Stable Discharge Instructions: Dysuria Referrals: NO PRIMARY CARE PROVIDER (PCP) Signature Scribe Signature: gf Attestation: The note accurately reflects work and decisions made by me.Dedrick Handy NP 11/05/24 14:37 DEDRICK GABRIEL NP November 05, 2024 09:43
[2024-11-05 09:46] VITALS: TEMP 98.4
== END 2024-11-05 09:48 | disposition home or self-care (01) ==
LOC: ER 07:43
DX: N39.0 Urinary tract infection, site not specified (principal); E78.00 Pure hypercholesterolemia, unspecified; Z88.1 Allergy status to other antibiotic agents; Z88.5 Allergy status to narcotic agent; Z79.82 Long term (current) use of aspirin
CPT/HCPCS: 81003; 99283